=== PATIENT | male | born 1935 | race Two or more races ===

== ENCOUNTER 2018-11-26 14:21 | Emergency (ER) | payer MEDICARE, OTHER ==
[~2018-11-26] VITALS: Ht 165.1 cm; Wt 57.6 kg
[~2018-11-26 14:21] MED LIST: CEPH500C2 PO; FINA5TAB11 PO; HYDR1TAB PO; TERA1CAP4 PO
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
[2018-11-26] MEDS ORDERED: KETOROLAC TROMETHAMINE INJ 30 MG/ML VIAL IV ONE (15:00)
[2018-11-26] MEDS ORDERED: IV NS 0.9% 1,000 ML BAG IV ONE (15:00)
[2018-11-26] MEDS ORDERED: TDAP [DIPH/PERTUSSIS/TET] 0.5 ML VIAL IM ONE ×2 (15:00→15:08)
[2018-11-26] MEDS ORDERED: KETOROLAC TROMETHAMINE INJ 30 MG/ML VIAL ONE (15:08)
[2018-11-26 15:10] LABS: BASOPHILS # (AUTO) 0.1 /CMM (0.0-0.2); EOSINOPHILS % (AUTO) 0.8 % (0.0-6.0); HEMATOCRIT 45 % (39-51); HEMOGLOBIN 14.8 g/dL (13.5-17.5); LYMPHOCYTES # (AUTO) 1.8 /CMM (0.8-4.8); LYMPHOCYTES % (AUTO) 23.7 % (20.0-44.0); MEAN CORPUSCULAR HGB CONC 33 g/dl (31.0-36.0); MEAN CORPUSCULAR VOLUME 95 fL (80-96); MONOCYTES # (AUTO) 0.4 /CMM (0.1-1.30); MONOCYTES % (AUTO) 5.2 % (2.0-12.0); NEUTROPHILS # (AUTO) 5.3 /CMM (1.8-8.9); NEUTROPHILS % (AUTO) 69.3 % (43.0-81.0); PLATELET COUNT (AUTO) 167 /CMM (150-450); RED BLOOD CELL COUNT(AUTO) 4.72 MIL/uL (4.5-6.0); WHITE BLOOD COUNT (AUTO) 7.7 K/uL (4.3-11.0)
[2018-11-26 15:23] LABS: CALCIUM, SERUM 9.2 mg/dL (8.5-10.1); CARBON DIOXIDE 28 mmol/L (21-32); CHLORIDE 108 mmol/L (98-107); GLUCOSE 114 mg/dL (74-106); POTASSIUM 4.7 mmol/L (3.5-5.1); SODIUM SERUM 139 mmol/L (136-145); UREA NITROGEN, BLOOD 21 mg/dL (7-18)
[2018-11-26 15:26] LABS: ALANINE AMINOTRANSFERASE 39 U/L (12-78); ALBUMIN 3.7 g/dL (3.4-5.0); ALKALINE PHOSPHATASE 68 U/L (46-116); ASPARTATE AMINOTRANSFERASE 26 U/L (15-37); BILIRUBIN,DIRECT 0.1 mg/dL (0.0-0.2); BILIRUBIN,TOTAL 0.5 mg/dL (0.2-1.0); LIPASE 176 U/L (73-393); TOTAL PROTEIN, SERUM 7.7 g/dL (6.4-8.2)
--- NOTE | 2018-11-26 16:38 | NUR ---
Patient discharged to home in stable condition. Written and verbal after care instructions given. Patient verbalizes understanding of instruction. IV removed. Catheter intact and site benign. Pressure and 4x4 applied to site. No bleeding noted.
[2018-11-26 16:40] VITALS: BP 131/75
== END 2018-11-26 16:41 | disposition home or self-care (01) ==
LOC: ER 14:26
DX: S20.219A Contusion of unspecified front wall of thorax, initial encounter (principal); S50.811A Abrasion of right forearm, initial encounter; N40.0 Benign prostatic hyperplasia without lower urinary tract symptoms; Z98.890 Other specified postprocedural states; Z79.899 Other long term (current) drug therapy; V49.49XA Driver injured in collision with other motor vehicles in traffic accident, initial encounter; Y93.89 Activity, other specified; Y92.413 State road as the place of occurrence of the external cause; Y99.8 Other external cause status
CPT/HCPCS: 36415; 70450-TC; 71250-TC; 80048-TC; 80076-TC; 83690-TC; 84484-TC; 85025-TC; 85730-TC; 90715; J1885; J7030

== ENCOUNTER 2021-05-25 09:41 | Emergency (ER) | payer MEDICARE, OTHER ==
[~2021-05-25] VITALS: Ht 162.6 cm; Wt 59.0 kg
[2021-05-25 09:48] VITALS: BP 131/75
--- NOTE | 2021-05-25 10:01 | NUR ---
SEEN AND EXAMINED BY .
--- NOTE | 2021-05-25 10:22 | NUR ---
HAIR SPECIALIST AT BEDSIDE FOR ULTRASOUND.
[2021-05-25] MEDS ORDERED: TERA5CAP7 PO (10:42)
[2021-05-25 10:48] LABS: BILIRUBIN,URINE NEGATIVE (NEGATIVE); COLOR,URINE YELLOW (YELLOW); LEUKOCYTE ESTERASE ,URINE MODERATE (NEGATIVE); NITRITE, URINE NEGATIVE (NEGATIVE); PROTEIN,URINE TRACE mg/dl (NEGATIVE); UGLUCOSE NEGATIVE (NEGATIVE); UROBILINOGEN,URINE 0.2 EU/dL (0.2)
[2021-05-25 11:20] LABS: WBC,URINE TOO NUMEROUS TO COUN /HPF (0-3)
[2021-05-25 11:21] LABS: BACTERIA,URINE Many /HPF (None Seen); SQUAMOUS EPITHELIAL CELL,UR Rare /HPF (None Seen)
[2021-05-25] MEDS ORDERED: CEPH500C2 PO (11:33)
[2021-05-25] MEDS ORDERED: IBUP-1957 PO (11:33)
--- NOTE | 2021-05-25 11:47 | NUR ---
Patient discharged to home in stable condition. Written and verbal after care instructions given. Patient verbalizes understanding of instruction.
== END 2021-05-25 11:48 | disposition home or self-care (01) ==
LOC: ER 09:47
DX: N50.811 Right testicular pain (principal); N39.0 Urinary tract infection, site not specified; N40.0 Benign prostatic hyperplasia without lower urinary tract symptoms; Z98.890 Other specified postprocedural states; Z79.899 Other long term (current) drug therapy
CPT/HCPCS: 76870-TC; 81001; 87086-TC; 87186-TC

== ENCOUNTER 2021-08-09 14:40 | Emergency (ER) | payer MEDICARE, OTHER ==
[~2021-08-09] VITALS: Ht 165.1 cm; Wt 59.0 kg
[~2021-08-09 14:40] MED LIST changes: -HYDR1TAB PO; +IBUP-1957 PO; -TERA1CAP4 PO; +TERA5CAP7 PO
--- NOTE | 2021-08-09 15:00 | NUR ---
TO ER BED 11, SENT BY PMD FOR LEFT LOWER ABDOMINAL PAIN P/S 02/04, DENIES NAUSEA/VOMITING, AAOX3, BREATHING EVEN AND NON LABORED, AWAITING MD MEDELLIN
[2021-08-09] MEDS ORDERED: IV NS 0.9% 500 ML BAG IV ONE (15:30)
[2021-08-09 15:37] LABS: BASOPHILS # (AUTO) 0.1 K/uL (0.0-0.2); EOSINOPHILS % (AUTO) 3.8 % (0.0-6.0); HEMATOCRIT 45 % (39-51); HEMOGLOBIN 14.6 g/dL (13.5-17.5); LYMPHOCYTES # (AUTO) 2.7 K/uL (0.8-4.8); LYMPHOCYTES % (AUTO) 41.7 % (20.0-44.0); MEAN CORPUSCULAR HGB CONC 33 g/dl (31.0-36.0); MEAN CORPUSCULAR VOLUME 97 fL (80-96); MONOCYTES # (AUTO) 0.5 K/uL (0.1-1.30); MONOCYTES % (AUTO) 7.7 % (2.0-12.0); NEUTROPHILS % (AUTO) 45.8 % (43.0-81.0); PLATELET COUNT (AUTO) 184 K/uL (150-450); WHITE BLOOD COUNT (AUTO) 6.5 K/uL (4.3-11.0)
[2021-08-09 15:44] LABS: BILIRUBIN,URINE NEGATIVE (NEGATIVE); COLOR,URINE YELLOW (YELLOW); LEUKOCYTE ESTERASE ,URINE NEGATIVE (NEGATIVE); NITRITE, URINE NEGATIVE (NEGATIVE); PROTEIN,URINE NEGATIVE (NEGATIVE); UGLUCOSE NEGATIVE (NEGATIVE); UROBILINOGEN,URINE 0.2 EU/dL (0.2)
[2021-08-09] MEDS ORDERED: AMOX/CLAVULANATE 875 MG TABLET PO ONE (16:00)
[2021-08-09 16:01] LABS: CALCIUM, SERUM 8.6 mg/dL (8.5-10.1); CREATININE 1.3 mg/dL (0.6-1.3); POTASSIUM 3.8 mmol/L (3.5-5.1)
[2021-08-09] MEDS ORDERED: AMOX/CLAVULANATE 875 MG TABLET ONE (16:05)
[2021-08-09 16:07] LABS: ALBUMIN 3.6 g/dL (3.4-5.0); BILIRUBIN,DIRECT 0.1 mg/dL (0.0-0.2); BILIRUBIN,TOTAL 0.5 mg/dL (0.2-1.0); TOTAL PROTEIN, SERUM 8.2 g/dL (6.4-8.2)
[2021-08-09] MEDS ORDERED: AMOX-430 PO (16:39)
--- NOTE | 2021-08-09 16:59 | NUR ---
IV removed. Catheter intact and site benign. Pressure and 4x4 applied to site. No bleeding noted.Patient discharged to home in stable condition. Written and verbal after care instructions given. Patient verbalizes understanding of instruction.
[2021-08-09 17:00] VITALS: BP 124/77
== END 2021-08-09 17:00 | disposition home or self-care (01) ==
LOC: ER 14:51
DX: K57.92 Diverticulitis of intestine, part unspecified, without perforation or abscess without bleeding (principal); N40.0 Benign prostatic hyperplasia without lower urinary tract symptoms; Z90.89 Acquired absence of other organs; Z98.890 Other specified postprocedural states; Z79.899 Other long term (current) drug therapy
CPT/HCPCS: 36415; 74176; 80048; 80076; 81003; 83690; 85025; 87086; 99284; J7040

== ENCOUNTER 2021-10-25 11:07 | Inpatient (IN) | payer MEDICARE, OTHER ==
[~2021-10-25] VITALS: Ht 165.1 cm; Wt 60.3 kg
[~2021-10-25 11:07] MED LIST changes: +AMOX-430 PO
--- NOTE | 2021-10-25 11:24 | NUR ---
TO ER BED 9, BIB FAMILY C/O LEFT LOWER ABDOMINAL PAIN, PAIN WHEN DOING BOWEL MOVEMENT, DENIES NAUSEA OR VOMITING, AAOX3, BREATHING EVEN AND NON LABORED, AWAITING MD ORDERS
--- NOTE | 2021-10-25 11:30 | NUR ---
SALINE LOCK ESTABLISHED, BLOOD DRAWN AND PICKED UP BY LAB
[2021-10-25 12:26] LABS: BASOPHILS % (AUTO) 0.1 % (0.0-2.0); EOSINOPHILS % (AUTO) 1.1 % (0.0-6.0); HEMATOCRIT 40 % (39-51); HEMOGLOBIN 13.2 g/dL (13.5-17.5); LYMPHOCYTES % (AUTO) 19.3 % (20.0-44.0); MEAN CORPUSCULAR HGB CONC 33 g/dl (31.0-36.0); MEAN CORPUSCULAR VOLUME 96 fL (80-96); MONOCYTES # (AUTO) 0.5 K/uL (0.1-1.30); MONOCYTES % (AUTO) 5.1 % (2.0-12.0); NEUTROPHILS # (AUTO) 7.6 K/uL (1.8-8.9); NEUTROPHILS % (AUTO) 74.4 % (43.0-81.0); PLATELET COUNT (AUTO) 157 K/uL (150-450); RED BLOOD CELL COUNT(AUTO) 4.14 MIL/uL (4.5-6.0); WHITE BLOOD COUNT (AUTO) 10.3 K/uL (4.3-11.0)
--- NOTE | 2021-10-25 12:30 | NUR ---
URINE COLLECTED AND SENT TO LAB
[2021-10-25 12:55] LABS: ALANINE AMINOTRANSFERASE 41 U/L (12-78); ALBUMIN 3.2 g/dL (3.4-5.0); ALKALINE PHOSPHATASE 71 U/L (46-116); ASPARTATE AMINOTRANSFERASE 18 U/L (15-37); BILIRUBIN,DIRECT 0.1 mg/dL (0.0-0.2); BILIRUBIN,TOTAL 0.4 mg/dL (0.2-1.0); CALCIUM, SERUM 9.3 mg/dL (8.5-10.1); CARBON DIOXIDE 28 mmol/L (21-32); CHLORIDE 107 mmol/L (98-107); CREATININE 1.3 mg/dL (0.6-1.3); GLUCOSE 137 mg/dL (74-106); POTASSIUM 3.9 mmol/L (3.5-5.1); SODIUM SERUM 140 mmol/L (136-145); TOTAL PROTEIN, SERUM 8.3 g/dL (6.4-8.2); UREA NITROGEN, BLOOD 19 mg/dL (7-18)
--- NOTE | 2021-10-25 13:35 | NUR ---
COVID ANTIGEN SWAB COLLECTED AND SENT TO LAB
[2021-10-25] MEDS ORDERED: CIPROFLOXACIN IV RTU 200 ML IV ONE (13:54)
[2021-10-25] MEDS ORDERED: METRONIDAZOLE 500MG/ NS 100ML 100 ML IV ONE (13:54)
[2021-10-25] MEDS ORDERED: FLAGYL/NS RTU 500 MG/100 ML PIGGYBACK IV ONE (14:00)
[2021-10-25] MEDS ORDERED: CIPROFLOXACIN IV RTU 400 MG in PREMIX 1 EA IV SCH (14:00)
[2021-10-25 14:12] LABS: LIPASE 114 U/L (73-393)
[2021-10-25 14:47] LABS: BILIRUBIN,URINE NEGATIVE (NEGATIVE); COLOR,URINE YELLOW (YELLOW); LEUKOCYTE ESTERASE ,URINE NEGATIVE (NEGATIVE); NITRITE, URINE NEGATIVE (NEGATIVE); PROTEIN,URINE 30 mg/dl (NEGATIVE); UGLUCOSE NEGATIVE (NEGATIVE); UROBILINOGEN,URINE 0.2 EU/dL (0.2)
[2021-10-25 15:07] LABS: BACTERIA,URINE Few /HPF (None Seen); RBC,URINE 0-2 /HPF (0-2); SQUAMOUS EPITHELIAL CELL,UR Few /HPF (None Seen)
[2021-10-25] MEDS ORDERED: MORPHINE SULFATE INJ 4 MG/ML DISP.SYRIN ONE (15:46)
[2021-10-25] MEDS ORDERED: ONDANSETRON HCL/PF 4 MG/2 ML VIAL ONE (15:46)
[2021-10-25] MEDS ORDERED: AZITHROMYCIN 500 MG in IV D5W 250 ML IV ONE (16:00)
[2021-10-25] MEDS ORDERED: MORPHINE SULFATE INJ 2 MG/ML DISP.SYRIN IV ONE (16:00)
[2021-10-25] MEDS ORDERED: ONDANSETRON HCL/PF 4 MG/2 ML VIAL IVP ONE (16:00)
[2021-10-25] MEDS ORDERED: IV NS 0.9% 1,000 ML BAG IV ONE (16:00)
[2021-10-25] MEDS ORDERED: CEFTRIAXONE 1GM BAG (ER ONLY) 50 ML IV ONE (16:00)
[2021-10-25] MEDS ORDERED: ENOXAPARIN SODIUM 40 MG/0.4 ML DISP.SYRIN SQ SCH (16:30)
[2021-10-25] MEDS ORDERED: Z GUARD REMEDY 4 OZ OINT TP PRN (16:30)
[2021-10-25] MEDS ORDERED: MAGNESIUM HYDROXIDE 30 ML UDC PO PRN (16:30)
[2021-10-25] MEDS ORDERED: MAG HYDROX/AL HYDROX/SIMETH 30 ML UDC PO PRN (16:30)
[2021-10-25] MEDS ORDERED: ONDANSETRON HCL/PF 4 MG/2 ML VIAL IVP PRN (16:30)
[2021-10-25] MEDS ORDERED: ACETAMINOPHEN 325 MG TABLET PO PRN (16:30)
[2021-10-25] MEDS ORDERED: MORPHINE SULFATE INJ 2 MG/ML DISP.SYRIN IV PRN (16:30)
[2021-10-25] MEDS ORDERED: IV NS 0.9% 1,000 ML IV PRN (16:30)
[2021-10-25] MEDS ORDERED: ENOXAPARIN SODIUM 40 MG/0.4 ML DISP.SYRIN SQ ONE (17:07)
[2021-10-25] MEDS ORDERED: ZOSYN IVPB 2.25 G in IV D5W 50ml IV SCH (18:00)
--- NOTE | 2021-10-25 19:25 | NUR ---
ATTEMPTED TO GIVE REPORT, RN STILL AT [facility]
--- NOTE | 2021-10-25 19:35 | NUR ---
BASE FILLER OPERATOR NOTES PATIENT BROUGHT UP AT THIS TIME. NO S/S OF APPARENT DISTRESS. C/O PAIN 01/05, WILL CARRY OUT DOCTOR'S ORDERS. PATIENT PAPER WORKS NOT BROUGHT UP BY ER PERSONNEL YET-- WILL CALL THEM. PATIENT ANGOLAN SPEAKING ONLY AND CANNOT GET ANY INFORMATION FROM THE PATIENT FOR NOW. WILL TRY TO CALL FAMILY MEMBER. WILL DO ADMISSION PROCESS.
--- NOTE | 2021-10-25 22:50 | NUR ---
PATIENT LEFT WITH DAUGHTER AT THIS TIME. AMNani. DOCTOR KODY AWARE. CHARGE NURSE HAS SPOKEN TO DOCTOR.
--- NOTE | 2021-10-25 23:07 | NUR ---
MS RN NOTE PATIENT AMA'D. CALLED THE [facility] TO TALK TO DOCTOR, CALL HAS NOT BEEN RETURNED. PATIENT DAUGHTER WAS COMPLAINING THAT NOBODY CALLED HER ABOUT THE EMERGENCY IN ER AND THAT PATIENT HAS BEEN IN PAIN AND I DID NOT GIVE ANY PAIN MEDICATION, WHICH I DID @2110 SOON I GOT PATIENT WRIST BAND. PATIENT BROUGHT UP IN THE UNIT WITHOUT PAPER WORKS HENCE I CALLED ADMITTING EARLIER BUT NOBODY ANSWER. HENCE I CALLED SARI FROM ER TO BRING IN PATIENT'S PAPERWORKS AND WRISTBAND SO I COULD ADMINISTER THE PAIN MEDICATION RIGHT AWAY AND I DID SOON SARI BROUGHT IN THE PAPERWORKS. FURTHERMORE, PATIENT'S DAUGHTER WAS SAYING "I DO NOT WANT YOU TO DO ANYTHING FOR HIM COS YOU'RE GIVING ATTITUDE". CAME UP TO THE CHARGE NURSE ABOUT THE SITUATION AND CHARGE NURSE WAS THE ONE WHO TALKED TO THE DAUGHTER AFTER THAT. DAUGHTER SIGNED AMA FORM AND LEFT WITH PATIENT. BELONGINGS LIST SIGNED. IV ACCESS WAS ALREADY TAKEN OFF BY PATIENT, ID BAND DISCARDED.
[2021-10-25 23:52] VITALS: BP 135/71
--- NOTE | 2021-10-26 05:36 | NUR ---
RISK INCIDENT REPORT COMPLETED AT THIS TIME.
[2021-10-26] MEDS ORDERED: PANTOPRAZOLE 40 MG TABLET.DR PO SCH (07:30)
[2021-10-26] MEDS ORDERED: FINASTERIDE (5 MG) 5 MG TABLET PO SCH (09:00)
[2021-10-26] MEDS ORDERED: TERAZOSIN HCL 5 MG CAPSULE PO SCH (09:00)
== END 2021-10-25 22:50 | disposition left against medical advice (07) | DRG 391 ==
LOC: ER 11:12 → TRANSITION 16:49 → MED 20:11
PROVIDERS: ADMIT Internal Medicine; ATTEND Internal Medicine
DX: K57.20 Diverticulitis of large intestine with perforation and abscess without bleeding (principal); N17.0 Acute kidney failure with tubular necrosis; K65.9 Peritonitis, unspecified; E44.0 Moderate protein-calorie malnutrition; N40.0 Benign prostatic hyperplasia without lower urinary tract symptoms; K76.0 Fatty (change of) liver, not elsewhere classified; Z79.899 Other long term (current) drug therapy; Z98.890 Other specified postprocedural states; Z87.19 Personal history of other diseases of the digestive system; K59.00 Constipation, unspecified
CPT/HCPCS: 36415; 80048-TC; 80076-TC; 81001; 83605-TC; 83690-TC; 84484-TC; 85025-TC; 87081-TC; 87086-TC; A4216; C9803; G0378; J0456; J0696; J0744; J1650; J2270; J2405; J2543; J7060

== ENCOUNTER 2023-07-11 10:30 | Emergency (ER) | payer MEDICARE, OTHER ==
[~2023-07-11] VITALS: Ht 165.1 cm; Wt 59.0 kg
[~2023-07-11 10:30] MED LIST changes: -AMOX-430 PO; -CEPH500C2 PO; -IBUP-1957 PO
[2023-07-11] MEDS ORDERED: ACETAMINOPHEN ES 500 MG TABLET ONE (12:30)
[2023-07-11] MEDS ORDERED: ACETAMINOPHEN 325 MG TABLET PO ONE (12:30)
[2023-07-11] MEDS ORDERED: TIMO5DRO18 EACHEYE (12:46)
[2023-07-11] MEDS ORDERED: LATA2.5D15 LEFTEYE (12:46)
[2023-07-11 12:56] LABS: BASOPHILS % (AUTO) 0.4 % (0.0-2.0); EOSINOPHILS # (AUTO) 0.2 K/uL (0.0-0.7); HEMATOCRIT 43 % (39-51); HEMOGLOBIN 14.2 g/dL (13.5-17.5); LYMPHOCYTES # (AUTO) 2.7 K/uL (0.8-4.8); LYMPHOCYTES % (AUTO) 35.5 % (20.0-44.0); MEAN CORPUSCULAR HEMOGLOBIN 31 PG (26.0-33.0); MEAN CORPUSCULAR HGB CONC 33 g/dl (31.0-36.0); MEAN CORPUSCULAR VOLUME 95 fL (80-96); MONOCYTES # (AUTO) 0.7 K/uL (0.1-1.30); MONOCYTES % (AUTO) 9.1 % (2.0-12.0); NEUTROPHILS # (AUTO) 4.1 K/uL (1.8-8.9); PLATELET COUNT (AUTO) 155 K/uL (150-450); RED BLOOD CELL COUNT(AUTO) 4.53 MIL/uL (4.5-6.0); RED CELL DISTRIBUTION WIDTH 13.1 % (11.5-15.0); WHITE BLOOD COUNT (AUTO) 7.7 K/uL (4.3-11.0)
[2023-07-11 13:06] LABS: APPEARANCE,URINE CLEAR (CLEAR); BILIRUBIN,URINE NEGATIVE (NEGATIVE); BLOOD, URINE NEGATIVE Ery/uL (NEGATIVE); COLOR,URINE YELLOW (YELLOW); KETONES,URINE NEGATIVE (NEGATIVE); LEUKOCYTE ESTERASE ,URINE TRACE (NEGATIVE); NITRITE, URINE POSITIVE (NEGATIVE); PROTEIN,URINE NEGATIVE (NEGATIVE); UGLUCOSE 1+ mg/dL (NEGATIVE); UROBILINOGEN,URINE 0.2 EU/dL (0.2)
[2023-07-11 13:12] LABS: INR 0.96 (0.91-1.10); PARTIAL THROMBOPLASTIN TIME 27.9 SEC (24.3-34.3); PROTHROMBIN TIME 10.2 SECS (9.2-11.1)
[2023-07-11 13:28] LABS: SERUM AMMONIA 22 umol/L (11-32)
[2023-07-11 13:31] LABS: CALCIUM, SERUM 8.3 mg/dL (8.5-10.1); CARBON DIOXIDE 28 mmol/L (21-32); CHLORIDE 104 mmol/L (98-107); GLUCOSE 100 mg/dL (74-106); POTASSIUM 3.9 mmol/L (3.5-5.1); SODIUM SERUM 139 mmol/L (136-145); UREA NITROGEN, BLOOD 22 mg/dL (7-18)
[2023-07-11 13:32] LABS: AMPHETAMINE, URINE NEGATIVE (NEGATIVE); BARBITURATE, URINE NEGATIVE (NEGATIVE); BENZODIAZEPINE, URINE NEGATIVE (NEGATIVE); CANNABINOID, URINE NEGATIVE (NEGATIVE); COCCAINE, URINE NEGATIVE (NEGATIVE); OPIATE, URINE NEGATIVE (NEGATIVE); PHENCYCLIDINE SCREEN,URINE NEGATIVE (NEGATIVE)
[2023-07-11 13:50] LABS: ADD URINE CULTURE YES; BACTERIA,URINE Rare /HPF (None Seen); RBC,URINE NONE SEEN /HPF (0-2); SQUAMOUS EPITHELIAL CELL,UR Rare /HPF (None Seen); WBC,URINE 0-2 /HPF (0-3)
[2023-07-11] MEDS ORDERED: MORPHINE SULFATE INJ 2 MG/ML DISP.SYRIN ONE (13:58)
[2023-07-11] MEDS ORDERED: MORPHINE SULFATE INJ 2 MG/ML DISP.SYRIN IV ONE (14:00)
[2023-07-11 14:15] LABS: ALANINE AMINOTRANSFERASE 45 U/L (12-78); ALBUMIN 3.4 g/dL (3.4-5.0); ALCOHOL, BLOOD 3 mg/dL (0-10); ALKALINE PHOSPHATASE 72 U/L (46-116); ASPARTATE AMINOTRANSFERASE 20 U/L (15-37); BILIRUBIN,DIRECT 0.1 mg/dL (0.0-0.2); BILIRUBIN,TOTAL 0.5 mg/dL (0.2-1.0); TOTAL PROTEIN, SERUM 7.7 g/dL (6.4-8.2)
[2023-07-11] MEDS ORDERED: CYCL5TAB PO (15:00)
[2023-07-11 15:15] VITALS: BP 130/78; TEMP 98; O2SAT 96
== END 2023-07-11 15:15 | disposition home or self-care (01) ==
LOC: ER 10:30
DX: M54.50 Low back pain, unspecified (principal); N40.1 Benign prostatic hyperplasia with lower urinary tract symptoms; R33.9 Retention of urine, unspecified; R51.9 Headache, unspecified; Z98.890 Other specified postprocedural states; Z79.899 Other long term (current) drug therapy
CPT/HCPCS: 99285; 96374; 51701; 93005; 70450; 72131; 72128; 82140; 85025; 80048; 87086; 80076; 81001; 36415; 84484; 85730; 80320; 80307; J2270; G0480